=== PATIENT | female | born 2000 | race Caucasian/White ===

== ENCOUNTER 2023-12-07 15:18 | Emergency (ER) | payer MEDICAID ==
[~2023-12-07] VITALS: Ht 167.6 cm; Wt 84.8 kg
[2023-12-07 15:21] VITALS: BP 141/93; PULSE 72; RESP 16; O2SAT 98
[2023-12-07] MEDS ORDERED: TRAZ-251 PO (16:31)
[2023-12-07 17:22] VITALS: TEMP 99.3
== END 2023-12-07 17:26 | disposition home or self-care (01) ==
LOC: ER 15:20
DX: G47.00 Insomnia, unspecified (principal); Z79.899 Other long term (current) drug therapy
CPT/HCPCS: 99283